=== PATIENT | female | born 1970 | race African-American/Black ===

== ENCOUNTER 2016-06-26 11:58 | Emergency (ER) | payer OTHER ==
[~2016-06-26] VITALS: Ht 165.1 cm; Wt 135.2 kg
--- NOTE | ~2016-06-26 | EKG ---
[place] [address] [address] [facility] [place] [address] ELECTROCARDIOGRAM REPORT Name: MAGDA MITCHELLFIDEL GILESIASSDPhilly Room #: [facility]Pr[facility] [id number] Admission: Attend Phys: Discharge: Date of : 68 Report #: [id number] THIS REPORT FOR: //name// [facility] ED Test Date: 2016-06-26 Test Time: 12:21:17 Pat Name: CLIVE MITCHELL Department: Room: Gender: F [employer] Site [employer] Consultant: Ángel BARAHONA : 1970 Requested By: Andrez Mandel Order Number: [id number] MD: Justice Pollack Measurements Intervals Candor Rate: 89 P: 29 WI: 136 QRS: -22 QRSD: 100 T: 38 QT: 374 QTc: 456 Interpretive Statements Sinus rhythm Low voltage, precordial leads Left ventricular hypertrophy No previous ECG available for comparison Electronically Signed On 06-26-2016 12:50:12 [employer]ATCH[employer] by Justice Pollack [email or web address] <ELECTRONICALLY SIGNED> By: Justcie Pollack MD 06/26/16 1250 1221 1221 Justice Pollack MD /DIONICIO
[~2016-06-26 11:58] MED LIST: ACYCLOVIR 800800 MG PO; ASPIRIN81 M2 PO; BENADRYL25 MG PO; CYCLOBENZAPRINE10 MG; DOXYCYCLINE 10100 MG PO; FLEXERIL; FLEXERIL PO; GENTAK 3 MG/M3 MG/M1 OP; GLUCOPHAGE; JANUVIA100 MG; LANTUS SUBQ; MULTI-VITAMIN1 EAC5 PO; NORCO 5-325 TA1 EACH PO; NOVOLOG100 UNIT/1 SUBQ; PERCOCET 5-3251 EACH PO; PHENADOZ25 MG RC; PRAVASTATIN SOD20 MG; PRAVASTATIN SOD20 MG PO; PREDNISONE 5 MG5 M1 PO; PROZAC 10 MG CA10 M1; PROZAC 20 MG20 M1 PO; SIMVASTATIN; ZESTORETIC; ZOFRAN ODT4 MG PO; ZOLOFT
[2016-06-26] MEDS ORDERED: ASPIRIN325 PO (12:52)
[2016-06-26] MEDS ORDERED: ESCITALOPRAM OX20 MG PO (12:53)
[2016-06-26] MEDS ORDERED: ATORVASTATIN CA40 MG PO (12:55)
[2016-06-26 12:56] LABS: URINE BILIRUBIN NEGATIVE (Negative); URINE BLOOD NEGATIVE (Negative); URINE COLOR YELLOW; URINE GLUCOSE-RANDOM* 2+ (Negative); URINE KETONES NEGATIVE (Negative); URINE LEUKOCYTES-REFLEX NEGATIVE (Negative); URINE PROTEIN (DIPSTICK) NEGATIVE (Negative); URINE SPECIFIC GRAVITY >= 1.030 (1.003-1.035); URINE UROBILINOGEN 0.2 E.U./dl (0.2-1.0)
[2016-06-26 12:56] LABS: ABSOLUTE NEUTROPHILS 4.3 thou/uL (1.4-8.2); BASOPHILS 0.8 % (0.0-2.0); EOSINOPHILS 3.3 % (0.0-3.0); HEMATOCRIT 40.8 % (37.0-47.0); HEMOGLOBIN 13.4 gm/dL (12.0-15.0); LYMPHOCYTES 36.4 % (24.0-44.0); MANUAL DIFF NO; MCH 27.3 pg (26.0-34.0); MCHC 32.9 % (28.0-37.0); MONOCYTES 8.6 % (1.0-8.0); PLATELET COUNT 313 thou/uL (150-400); POLYS 50.9 % (36.0-66.0); RBC 4.91 mil/uL (4.20-5.00); RDW 14.8 % (10.5-14.5); WBC 8.5 thou/uL (4.0-11.0)
[2016-06-26] MEDS ORDERED: HYDROXYZINE PAM50 MG PO (12:57)
[2016-06-26] MEDS ORDERED: TRAZODONE HCL100 MG PO (12:57)
[2016-06-26] MEDS ORDERED: PEPCID20 MG PO (12:58)
[2016-06-26] MEDS ORDERED: COZAAR 50 MG TA50 M2 PO (12:58)
[2016-06-26] MEDS ORDERED: SINGULAIR 10 MG10 M1 PO (13:00)
[2016-06-26] MEDS ORDERED: LASIX 40 MG TAB40 M2 PO (13:00)
[2016-06-26] MEDS ORDERED: FLUTICASONE PRO16 GM NS (13:01)
[2016-06-26 13:03] LABS: CALCIUM 8.6 mg/dL (8.5-10.1); CREATININE 0.7 mg/dL (0.6-1.3); POTASSIUM 4.3 mmol/L (3.5-5.1)
[2016-06-26] MEDS ORDERED: ANTIVERT25 MG PO (14:15)
[2016-06-26 14:22] VITALS: BP 145/86
== END 2016-06-26 14:23 | disposition home or self-care (01) ==
LOC: ER 11:58
PROVIDERS: Physician Assistant
DX: E11.9 Type 2 diabetes mellitus without complications (principal); E86.0 Dehydration; I10 Essential (primary) hypertension; Z90.710 Acquired absence of both cervix and uterus